=== PATIENT | female | born 1970 | race Asian ===

== ENCOUNTER → 2018-04-06 | Outpatient (CLI) | payer BC ==
--- NOTE | 2018-04-06 10:47 | US ---
EXAMINATION TYPE: US pelvic complete DATE OF EXAM: 04/06/2018 COMPARISON: NONE CLINICAL HISTORY: Abdominal Pain R10.9. LLQ LUQ pain TECHNIQUE: Transabdominal (TA). Date of LMP: 03/08/2018 EXAM MEASUREMENTS: Uterus: 6.9 x 6.4 x 7.6 cm Endometrial Stripe: 2.2 cm Right Ovary: 3.4 x 1.2 x 3.4 cm Left Ovary: 2.8 x 2.4 x 3.5 cm 1. Uterus: Anteverted wnl 2. Endometrium: thickened at 2.2 cm 3. Right Ovary: wnl 4. Left Ovary: wnl 5. Bilateral Adnexa: wnl 6. Posterior cul-de-sac: no free fluid IMPRESSION: 1. Thickened endometrial stripe. 2. Pelvic ultrasound is otherwise unremarkable.
--- NOTE | 2018-04-06 10:48 | US ---
EXAMINATION TYPE: US abdomen complete DATE OF EXAM: 04/06/2018 COMPARISON: NONE CLINICAL HISTORY: Abdominal Pain R10.9. LUQ pain EXAM MEASUREMENTS: Liver Length: 10.9 cm Gallbladder Wall: 0.3 cm CBD: 0.5 cm Spleen: 10.1 cm Right Kidney: 10.2 x 3.6 x 4.2 cm Left Kidney: 11.1 x 5.0 x 4.9 cm Pancreas: visualized portions wnl Liver: wnl Gallbladder: No stones seen Evidence for sonographic Thakkar's sign: No CBD: wnl Spleen: wnl Right Kidney: No hydronephrosis or masses seen Left Kidney: No hydronephrosis or masses seen Upper IVC: wnl Abd Aorta: wnl IMPRESSION: 1. Normal abdomen ultrasound
--- NOTE | 2018-04-06 12:14 | MM ---
Reason for exam: screening (asymptomatic). Baseline mammogram. Physical Findings: Nurse did not find any significant physical abnormalities on exam. MG 3D Screening Mammo W/Cad Bilateral CC and MLO view(s) were taken. The breast tissue is extremely dense which could obscure a lesion on mammography. Focal asymmetry right upper outer quadrant, probably benign. These results were verbally communicated with the patient and result sheet given to the patient on 04/06/18. ASSESSMENT: Probably benign, BI-RAD 3 RECOMMENDATION: Follow-up diagnostic mammogram of the right breast in 6 months.
== END | disposition home or self-care (01) ==
LOC: RADUSWWP 08:38
PROVIDERS: ATTEND Family Medicine
DX: Z12.31 Encounter for screening mammogram for malignant neoplasm of breast (principal); R93.8 Abnormal findings on diagnostic imaging of other specified body structures; R10.9 Unspecified abdominal pain
CPT/HCPCS: 76700; 76856; 77063; 77067

== ENCOUNTER → 2018-10-11 | Outpatient (CLI) | payer BC ==
--- NOTE | 2018-10-11 13:40 | MM ---
Reason for exam: follow-up at short interval from prior study. Last mammogram was performed 6 months ago. Physical Findings: Nurse Summary: 2cm nodule in the right breast at 11 o'clock (nurse elizabeth). MG 3D Diag Mammo W/Cad RT CC, MLO, LM, and XCCL view(s) were taken of the right breast. Prior study comparison: April 06, 2018, bilateral MG 3d screening mammo w/cad. The breast tissue is extremely dense which could obscure a lesion on mammography. Finding: There is a 15 mm lobulated mass in the upper outer quadrant of the right breast. These results were verbally communicated with the patient and result sheet given to the patient on 10/11/18. ASSESSMENT: Incomplete: need additional imaging evaluation, BI-RAD 0 RECOMMENDATION: Ultrasound of the right breast.
--- NOTE | 2018-10-11 13:44 | USB ---
Reason for exam: additional evaluation requested from abnormal screening. US Breast Limited RT Right limited breast ultrasound including focal area of concern, retroareolar and axilla demonstrates a 10 x 5 x 9mm lobular, cystic, mixed lesion at 9 o'clock, a 24 x 10 x 24mm oval, cystic lesion at 10 o'clock BB, a 12 x 6 x 12mm lobular, cystic lesion at 10 o'clock and a 7 x 5 x 9mm oval, lobular, solid, hypoechoic lesion at 10 o'clock. These results were verbally communicated with the patient and result sheet given to the patient on 10/11/18. ASSESSMENT: Suspicious, BI-RAD 4 RECOMMENDATION: Ultrasound core biopsy of the right breast. Called Dr. Jama with mammographic findings and has scheduled an appointment for the patient for 10/19/18 at 8:[address] Barahona. Biopsy scheduled for 10/24/18 at 12:20. PRELIMINARY REPORT CALLED AND FAXED TO DR. BARAHONA ON 10/11/18.
== END | disposition home or self-care (01) ==
LOC: RADMAMWWP 10:21
PROVIDERS: ATTEND Family Medicine
DX: R92.8 Other abnormal and inconclusive findings on diagnostic imaging of breast (principal)
CPT/HCPCS: 77061; 77065

== ENCOUNTER → 2018-10-19 | Outpatient (CLI) | payer BC ==
[2018-10-19 08:00] VITALS: BP 118/75; PULSE 69; RESP 16; TEMP 98; BMI 23.4
--- NOTE | 2018-10-19 08:48 | P.GSHP ---
History of Present Illness H&P Date: 10/19/18 Chief Complaint: abnormal mammogram/ultrasound of the right breast The patient is a 47-year-old white female who presents for breast evaluation. Secondary to a wellness check recommended from work a mammogram was performed. On the mammogram shouldn't was noted to have a 15 mm lobulated mass in the upper outer quadrant of the right breast. This was performed in October 11. She subsequently underwent an ultrasound which revealed a 10 x 9 mm lobular, cystic mixed lesion at 9:00, a 24 x 24 mm cystic lesion at 10:00, a 12 x 12 mm lobular cystic lesion at 10:00, and a 7 x 9 mm lobulated, solid, hypoechoic lesion at 10:00. This was felt to be suspicious BIRADS 4 and ultrasound-guided core biopsy of the right breast was recommended. The patient does not feel anything of concern in her breasts. The patient has no nipple discharge of concern. She is not complaining of any pain in her breasts. She has no history of any infection or trauma in the breast. She has never had a breast biopsy in the past. Drinks one cup of coffee/day. She drinks pop twice a week. She does eat dark chocolate every day. She does smoke but does have some second hand exposure to smoke. Family History: negative for cancer Hormonal History: menarche: 14 : 1 at 24, 1 child, breast fed: yes periods: regular, due in two weeks BCP: no hormones: no Past Surgical History: none Past Medical History: none Social History: Smoking: Negative Alcohol: Negative Drugs: Negative - Constitutional Constitutional: Denies chills, Denies fever - EENT Comment: wears glasses Eyes: Ears: Ears, nose, mouth and throat: Denies headache, Denies sore throat - Breasts Breasts: - Cardiovascular Cardiovascular: Denies chest pain, Denies shortness of breath - Respiratory Respiratory: Denies cough, Denies 7 - Gastrointestinal Gastrointestinal: Denies abdominal pain, Denies diarrhea, Denies nausea, Denies vomiting - Genitourinary (Female) Genitourinary: Denies dysuria, Denies hematuria - Menstruation Menstruation: Reports period normal - Musculoskeletal Comment: works in a factory Musculoskeletal: Denies myalgias - Integumentary Integumentary: Denies pruritus, Denies rash - Neurological Neurological: Denies numbness, Denies weakness - Psychiatric Psychiatric: Denies anxiety, Denies depression - Endocrine Endocrine: Denies fatigue, Denies weight change - Hematologic/Lymphatic Comment: none - Allergic/Immunologic Comment: none Past Medical History History of Any Multi-Drug Resistant Organisms: None Reported Smoking Status: Never smoker Medications and Allergies Home Medications Medication Instructions Recorded Confirmed Type Ibuprofen [Advil] 200 mg PO Q8HR PRN 10/19/18 10/19/18 History Allergies Allergy/AdvReac Type Severity Reaction Status Date / Time naproxen [From Aleve] Allergy Swelling Unverified 10/19/18 08:01 Surgical - Exam Vital Signs Temp Pulse Resp BP Pulse Ox 98.0 F 69 16 118/75 99 10/19/18 07:52 10/19/18 07:52 10/19/18 07:52 10/19/18 07:52 10/19/18 07:52 BMI 23.4 - General well developed, well nourished, no distress - Eyes normal ocular movement, no icteric - ENT no hearing loss, no congestion - Neck no masses, trachea midline - Respiratory normal respiratory effort, clear to auscultation - Cardiovascular Rhythm: regular Heart Sounds: - Abdomen Abdomen: soft, non tender, no guarding, no rigid, no rebound - Integumentary no rash, no abnormal pigmentation - Neurologic no disoriented, no combative - Musculoskeletal normal gait, normal posture - Psychiatric oriented to time, oriented to person, oriented to place, speech is normal, memory intact breast exam: right breast: Multi-positional exam no dominant masses or nodules of concern Right axilla: No adenopathy of concern Left breast: Multi-positional exam no dominant masses or nodules of concern, fibrocystic changes Left axilla: No adenopathy of concern Results Mammogram and ultrasound results reviewed Assessment and Plan Assessment: Impression: 1. Radiographic abnormality mammogram and ultrasound of the right breast 2. Fibrocystic breast changes 3. No family history of cancer Plan: 1. Ultrasound-guided core biopsy of the right breast 2. Follow-up after ultrasound-guided core biopsy with discussed risks and benefits of ultrasound-guided core biopsy. I've also discussed things that can exacerbate fibrocystic disease and recommended abstaining from them. These include caffeinated beverages, exposure to nicotine, and possibly her chocolate. She understands and will take this into consideration. CC: DR. Harsha Jama
== END | disposition home or self-care (01) ==
LOC: WWCWWP 07:41
PROVIDERS: ATTEND Surgery
DX: Z53.9 Procedure and treatment not carried out, unspecified reason (principal)

== ENCOUNTER → 2018-10-24 | Day surgery (SDC) | payer BC ==
[2018-10-24 11:39] VITALS: RESP 12; BMI 23.4
[2018-10-24 13:04] VITALS: BP 130/80; PULSE 78; TEMP 98.3
--- NOTE | 2018-10-24 13:58 | USB ---
EXAMINATION TYPE: US biopsy breast VAD RT, MG diagnostic mammo RT wo CAD DATE OF EXAM: 10/24/2018 CLINICAL HISTORY: R92.8 ABN MONAE. TECHNIQUE: Ultrasound guided core biopsy of right breast. COMPARISON: NONE FINDINGS: The procedure of ultrasound guided core biopsy was explained to the patient. Benefits, alternatives, and risks were discussed. An informed consent was then obtained. The patient was placed in supine positioning for imaging and for the procedure. The overlying skin was prepped and draped in usual sterile fashion. Lidocaine buffered with bicarbonate was used as anesthetic into the skin and subcutaneous tissue up to area of concern in the right breast. A fred was made with surgical scalpel. Under ultrasound guidance, a 12-gauge vacuum assisted biopsy gun device was used to obtain 4 core samples. Following this, a biopsy clip was left in lesion. Postprocedural mammogram demonstrates appropriate clip deployment. The patient tolerated the procedure well without any immediate complication. The patient was kept in the radiology department for short stay after the procedure and then discharged home in stable condition. IMPRESSION: Successful, uncomplicated ultrasound guided core biopsy of area of concern in the right breast, full pathology results to follow. Pathology Results: Benign RIGHT BREAST LESION, NEEDLE CORE BIOPSY: Fibrocystic spectrum lesion with stromal fibrosis, duct cystic changes and a variety of duct hyperplastic lesions. Recommendation Follow up ultrasound of the right breast in 6 months. SHANA
== END ==
LOC: RADUSWWP 11:10
PROVIDERS: ATTEND Surgery
DX: R92.8 Other abnormal and inconclusive findings on diagnostic imaging of breast (principal); N64.89 Other specified disorders of breast
CPT/HCPCS: 19083; 88305; 77065; A4648; J2001

== ENCOUNTER → 2018-11-03 | Outpatient (CLI) | payer BC ==
[2018-11-03 14:39] VITALS: BP 136/83; PULSE 62; RESP 16; TEMP 97.6; BMI 23.4
--- NOTE | 2018-11-03 14:59 | P.PN ---
Subjective Progress Note Date: 11/03/18 Principal diagnosis: Status post ultrasound-guided core biopsy right breast Lani is a 47-year-old female who is status post right breast [place] [id number]. Pathology was consistent with fibrocystic spectrum lesion. The ultrasound was reviewed with radiology and is felt that there is no other area of concern. The patient has no complaints related to the procedure at this time. Objective - Vital Signs Vital signs: Vital Signs Temp 97.6 F 11/03/18 14:36 Pulse 62 11/03/18 14:36 Resp 16 11/03/18 14:36 BP 136/83 11/03/18 14:36 Pulse Ox 99 11/03/18 14:36 Intake & Output 11/02/18 11/03/18 11/03/18 18:59 06:59 18:59 Weight 54.431 kg - Exam BMI 23.4 - Constitutional General appearance: Present: average body habitus - EENT Eyes: Present: EOMI ENT: Present: hearing grossly normal - Neck Neck: Present: normal ROM - Respiratory Respiratory: bilateral: CTA - Cardiovascular Rhythm: regular Heart sounds: normal: S1, S2 - Integumentary Integumentary Comment(s): Puncture site clean and dry no evidence of infection in the right breast Assessment and Plan Assessment: Impression: 1. Patient status post right breast ultrasound core biopsy pathology benign 2. Fibrocystic breast changes Plan: 1. Repeat right breast ultrasound in 6 months with physician exam at that time CC: Dr. Harsha Jama
== END ==
LOC: WWCWWP 14:35
PROVIDERS: ATTEND Surgery
DX: Z53.9 Procedure and treatment not carried out, unspecified reason (principal)

== ENCOUNTER 2019-08-18 12:15 | Emergency (ER) | payer BC ==
[2019-08-18 14:13] VITALS: RESP 20
--- NOTE | 2019-08-18 14:34 | XR ---
EXAMINATION TYPE: XR chest 2V DATE OF EXAM: 08/18/2019 COMPARISON: None HISTORY: 48-year-old female with cough TECHNIQUE: PA and lateral views FINDINGS: Heart normal size. Mild interstitial prominence without consolidation or pleural effusion. IMPRESSION: Mild interstitial prominence may reflect bronchitis or asthma. Otherwise, no acute cardiopulmonary pr ocess.
--- NOTE | 2019-08-18 14:46 | ED ---
General Adult HPI - General Chief complaint: Upper Respiratory Infection Stated complaint: flu like sym Time Seen by Provider: 08/18/19 13:44 Source: patient Mode of arrival: ambulatory Limitations: no limitations - History of Present Illness Initial comments: Patient is a 48-year-old female presenting to the emergency department with chief complaint of cough. She reports symptoms began about 2 days ago and have been persistent since. The cough is productive in nature with whitish sputum production. She also reports some sinus congestion and a sore throat. She does report brief headaches with some dizziness after coughing fits. Denies any posttussive emesis. Denies having flu vaccination. She has been exposed to people with influenza. Patient is not a smoker nor has asthma. Denies taking any other medication to alleviate the symptoms. Does report chills but never actually pain or temperature. Denies any abdominal pain chest pain or shortness of breath. - Related Data Home Medications Medication Instructions Recorded Confirmed Ibuprofen [Advil] 200 mg PO Q8HR PRN 10/19/18 11/03/18 Previous Rx's Medication Instructions Recorded Guaifenesin/Pseudoephedrne HCl 1 each PO BID PRN #20 tab.er.12h 08/18/19 [Mucinex D ER 1,200-120 mg Tab] Allergies Allergy/AdvReac Type Severity Reaction Status Date / Time naproxen [From Aleve] Allergy Swelling Verified 08/18/19 13:27 Review of Systems ROS Statement: Those systems with pertinent positive or pertinent negative responses have been documented in the HPI. ROS Other: All systems not noted in ROS Statement are negative. Past Medical History Past Medical History: No Reported History History of Any Multi-Drug Resistant Organisms: None Reported Past Surgical History: No Surgical Hx Reported Past Anesthesia/Blood Transfusion Reactions: No Reported Reaction Past Psychological History: No Psychological Hx Reported Smoking Status: Never smoker Past Alcohol Use History: None Reported Past Drug Use History: None Reported General Exam Limitations: no limitations General appearance: alert, in no apparent distress Head exam: Present: atraumatic, normocephalic, normal inspection Eye exam: Present: normal appearance, PERRL, EOMI Pupils: Present: normal accommodation ENT exam: Present: normal exam, normal oropharynx, mucous membranes moist, TM's normal bilaterally, normal external ear exam Neck exam: Present: normal inspection, full ROM. Absent: lymphadenopathy Respiratory exam: Present: normal lung sounds bilaterally. Absent: wheezes Cardiovascular Exam: Present: regular rate, normal rhythm, normal heart sounds GI/Abdominal exam: Present: soft. Absent: tenderness Back exam: Present: normal inspection, full ROM Neurological exam: Present: alert, oriented X3 Psychiatric exam: Present: normal affect, normal mood Skin exam: Present: warm, dry, intact, normal color. Absent: rash Course Vital Signs 08/18/19 08/18/19 13:25 13:27 Temperature 101.6 F H Pulse Rate 94 72 Respiratory 18 20 Rate Blood Pressure 133/90 125/83 O2 Sat by Pulse 99 97 Oximetry Medical Decision Making - Medical Decision Making Patient is a 48-year-old female presenting to emergency Department with a chief complaint of a cough. Symptoms have been ongoing for about a week. On exam there is no wheezing on auscultation. Patient does not have shortness of breath or chest pain. Chest x-ray shows bilateral respiratory illness. I suspect the patient has bronchitis. Patient will be discharged with antitussive medication for symptomatically. Patient vised alternate between Tylenol and ibuprofen for fever control. Strict return parameters were thoroughly discussed with patient is understanding and agreeable. Patient was to follow with primary care. Patient has no history of asthma or smoking. Case discussed with physician. Disposition Clinical Impression: Bronchitis Disposition: HOME SELF-CARE Condition: Stable Instructions (If sedation given, give patient instructions): Acute Bronchitis (ED) Additional Instructions: Please take prescribed medication as directed. Please follow up with primary care. Please return to emergency department if symptoms worsen. Prescriptions: Guaifenesin/Pseudoephedrne HCl [Mucinex D ER 1,200-120 mg Tab] 1 each PO BID PRN #20 tab.er.12h PRN Reason: Cough Is patient prescribed a controlled substance at d/c from ED?: No Referrals: Harsha Jama MD [Primary Care Provider] - 1-2 days Time of Disposition: 14:59
[2019-08-18] MEDS ORDERED: ACETAMINOPHEN TAB 325 MG TAB PO STA ×2 (14:59→15:23)
[2019-08-18 15:26] VITALS: BP 130/85; PULSE 87; TEMP 99.7
== END 2019-08-18 15:28 | disposition home or self-care (01) ==
LOC: EC 12:15
DX: J40 Bronchitis, not specified as acute or chronic (principal); Z88.6 Allergy status to analgesic agent
CPT/HCPCS: 71046; 87502; 99283

== ENCOUNTER → 2019-10-02 | Outpatient (CLI) | payer BC ==
--- NOTE | 2019-10-02 11:00 | MM ---
Reason for exam: additional evaluation requested from prior study. Last mammogram was performed 11 months ago. History: Benign US biopsy breast VAD RT of the right breast, October 24, 2018. Physical Findings: Nurse Summary: 2cm nodule in the right breast at 12 o'clock (nurse trudi). MG 3D Diag Mammo W/Cad ANGELO Bilateral CC and MLO view(s) were taken. LM, spot compression XCCL, and spot compression MLO view(s) were taken of the left breast. Prior study comparison: October 24, 2018, right breast MG diagnostic mammo RT wo CAD. October 11, 2018, right breast MG 3d diag mammo w/cad RT. The breast tissue is heterogeneously dense. This may lower the sensitivity of mammography. Previous mammotome biopsy in the right breast. Enlarging circumscribed mass right upper outer quadrant likely cyst corresponding to the palpable site. Nodular asymmetric density superior posterior left MLO view more defined from priors. These results were verbally communicated with the patient and result sheet given to the patient on 10/02/19. ASSESSMENT: Incomplete: need additional imaging evaluation, BI-RAD 0 RECOMMENDATION: Ultrasound of the right breast. (palpable)
--- NOTE | 2019-10-02 11:05 | USB ---
Reason for exam: additional evaluation requested from prior study. History: Benign US biopsy breast VAD RT of the right breast, October 24, 2018. US Breast Limited BILAT Right limited breast ultrasound including focal area of concern, retroareolar and axilla demonstrates a 1.6 x 0.7 x 1.5cm oval, cystic lesion at 9 o'clock, a 0.5 x 0.3 x 0.6cm oval, mixed lesion with clip seen at 10 o'clock, a 2.8 x 1.2 x 3.1cm oval, cystic lesion at 11 o'clock and a 1.8 x 1.0 x 1.6cm oval, cystic cluster at 12 o'clock. Benign. Left limited breast ultrasound including focal area of concern, retroareolar and axilla demonstrates a 0.8 x 0.6 x 0.8cm oval, cystic, benign lesion at 12 o'clock, may correspond to the mammographic finding and irregular tissue at 1 o'clock, 6 month follow up recommended. Scanned bilateral upper outer quadrants. These results were verbally communicated with the patient and result sheet given to the patient on 10/02/19. ASSESSMENT: Probably benign, BI-RAD 3 RECOMMENDATION: Follow-up diagnostic mammogram and ultrasound of the left breast in 6 months.
== END | disposition home or self-care (01) ==
LOC: RADUSWWP 08:55
PROVIDERS: ATTEND Surgery
DX: R92.8 Other abnormal and inconclusive findings on diagnostic imaging of breast (principal)
CPT/HCPCS: 77062; 77066

== ENCOUNTER → 2019-10-17 | Outpatient (CLI) | payer BC ==
[2019-10-17 13:46] VITALS: BP 143/87; PULSE 66; RESP 18; TEMP 98.3
--- NOTE | 2019-10-17 14:35 | P.PN ---
Subjective Progress Note Date: 10/17/19 Principal diagnosis: breast cystic disease Lani is a 48 year old [place] female who approximately a year ago underwent a mammogram as a wellness check recommended from her work. The patient at that time was noted to have an area of concern in the upper outer quadrant of the right breast. She subsequently underwent an ultrasound which likewise revealed an area of concern felt to be suspicious BIRADS 4 and an ultrasound core biopsy was recommended. The ultrasound core biopsy was benign. The patient at that time did not feel anything in her breast. She states she does not feel anything in her breast at this time. A repeat mammogram was done on 10/02/2019. The nurse at that time noted a 2 cm nodule in the breast at the 12 o'clock position. Bilateral mammogram revealed an enlarging circumscribed right breast upper outer quadrant mass likely cystic corresponding to palpable site. Nodular asymmetric density superior posterior left breast was also noted. The patient was recommended to undergo ultrasound. The [place] [id number]. In the right breast there was a 1.6 cm cystic lesion at 9:00, and mixed lesion with clip seen at 10:00, 2.8 cm cystic lesion at 11:00, and 1.8 cm oval cystic cluster at 12:00 all felt to be benign. In the left breast ultrasound revealed a 0.8 cm oval cystic lesion at 12:00 questionably corresponding to mammographic findings and irregular tissue at 1:00 and 6 month follow-up was recommended for the left breast. Caffiene: One cup of coffee per day Smoke: Patient is exposed to secondhand smoke she does not smoke Theophylline: Patient eats dark chocolate several times a week Family History: negative for cancer Hormonal History: menarche: 14 : 1 at 24, 1 child, breast fed: yes periods: regular, due in two weeks BCP: no hormones: no Past Surgical History: none Past Medical History: none Social History: Smoking: Negative, second hand smoke Alcohol: Negative Drugs: Negative - Constitutional Constitutional: Denies chills, Denies fever - EENT Comment: wears glasses Eyes: Ears: Ears, nose, mouth and throat: Denies headache, Denies sore throat - Breasts Breasts: as per HPI - Cardiovascular Cardiovascular: Denies chest pain, Denies shortness of breath - Respiratory Respiratory: Denies cough - Gastrointestinal Gastrointestinal: Denies abdominal pain, Denies diarrhea, Denies nausea, Denies vomiting - Genitourinary (Female) Genitourinary: Denies dysuria, Denies hematuria - Menstruation Menstruation: Reports period normal - Musculoskeletal Comment: works in a factory Musculoskeletal: Denies myalgias - Integumentary Integumentary: Denies pruritus, Denies rash - Neurological Neurological: Denies numbness, Denies weakness - Psychiatric Psychiatric: Denies anxiety, Denies depression - Endocrine Endocrine: Denies fatigue, Denies weight change - Hematologic/Lymphatic Comment: none - Allergic/Immunologic Comment: seasonal allergies/advil Objective - Vital Signs Vital signs: Vital Signs Temp 98.3 F 10/17/19 13:44 Pulse 66 10/17/19 13:44 Resp 18 10/17/19 13:44 BP 143/87 10/17/19 13:44 Pulse Ox 99 10/17/19 13:44 Intake & Output 10/16/19 10/17/19 10/17/19 18:59 06:59 18:59 Weight 53.524 kg - Exam BMI 23.8 - Constitutional General appearance: Present: average body habitus - EENT Eyes: Present: EOMI ENT: Present: hearing grossly normal - Neck Neck: Present: normal ROM - Respiratory Respiratory: bilateral: CTA - Cardiovascular Rhythm: regular Heart sounds: normal: S1, S2 - Gastrointestinal Gastrointestinal Comment(s): no guarding or rebound General gastrointestinal: Present: normal bowel sounds, soft - Integumentary Integumentary: Present: normal turgor - Musculoskeletal Musculoskeletal: Present: gait normal - Psychiatric Psychiatric: Present: A&O x's 3, appropriate affect, intact judgment & insight - Additional findings Additional findings: breast exam: BRA 32B ptosis: grade 2/3 Inspection: No nipple inversion, no skin lesions of concern Palpation: Right breast: Multi-positional exam fibrocystic changes, discrete nodule at 12:00 approximately 1.2 cm in size, this is most likely cystic in nature but is tender to palpation Right axilla: No adenopathy of concern left breast: Multiple positional exam fibrocystic changes Left axilla: No adenopathy of concern Assessment and Plan Assessment: Impression: 1. Patient status post ultrasound-guided core biopsy of right breast 2019 which was benign 2. At the 12 o'clock position of the right breast there is a palpable area of abnormality for which cyst aspiration has been recommended 3. Fibrocystic breast changes 4. Radiographic abnormality left breast for which 6 month repeat ultrasound and mammogram is recommended 5. Seasonal ALLERGIES/ALLERGY to naproxen/Advil Plan: 1. Recommend aspiration tender area of palpable lesion right breast suspect this is cystic in nature if this fails to resolve we'll consider was cytology wasn't consider excision in the operating room Patient and her understand the risks and benefits of some be scheduled in the near future CC: Dr. Harsha Jama encounter f25 minutes, > 50% of time in planning and counselling Time with Patient: Less than 30
== END ==
LOC: WWCWWP 13:33
PROVIDERS: ATTEND Surgery
DX: Z53.9 Procedure and treatment not carried out, unspecified reason (principal)

== ENCOUNTER → 2019-10-18 | Outpatient (CLI) | payer BC ==
--- NOTE | 2019-10-18 11:34 | P.PCN ---
Date of Procedure: 10/18/19 Preoperative Diagnosis: cyst right breast Postoperative Diagnosis: Same Procedure(s) Performed: Aspiration cyst right breast Surgeon: Ileana Barahona Pathology: none sent Condition: stable Disposition: same day Indications for Procedure: Palpable mass right breast at 12:00 Description of Procedure: Patient was taken to the procedure room and the area of concern was prepped using alcohol. A 22-gauge needle on a 10 mL syringe was inserted into the area of concern. 6 mL of straw-colored fluid was withdrawn with resolution of the palpable mass. Patient tolerated the procedure in stable condition. She will follow up in 3 weeks. Fluid was not sent for cytology.
[2019-10-18 11:47] VITALS: BP 120/81; PULSE 71; RESP 18; TEMP 98.1
== END ==
LOC: WWCWWP 11:08
PROVIDERS: ATTEND Surgery
DX: Z53.9 Procedure and treatment not carried out, unspecified reason (principal)

== ENCOUNTER → 2020-10-23 | Outpatient (CLI) | payer SELFPAY ==
--- NOTE | 2020-10-23 14:26 | MM ---
Reason for exam: additional evaluation requested from prior study. Last mammogram was performed 1 year and 1 month ago. History: Benign US biopsy breast VAD RT of the right breast, October 24, 2018. Physical Findings: Nurse Summary: 1cm nodule in the right breast at 12 o'clock (nurse elizabeth). MG 3D Diag Mammo W/Cad ANGELO Bilateral CC and MLO view(s) were taken. Prior study comparison: October 02, 2019, bilateral MG 3d diag mammo w/cad ANGELO. October 24, 2018, right breast MG diagnostic mammo RT wo CAD. Finding #1: There is a 3.5 mm obscured oval mass in the upper outer quadrant of the right breast. Finding #2: There are typically benign calcifications in the left breast. Previous mammotome biopsy in the right breast. These results were verbally communicated with the patient and result sheet given to the patient on 10/23/20. ASSESSMENT: Incomplete: need additional imaging evaluation, BI-RAD 0 RECOMMENDATION: Ultrasound of both breasts.
--- NOTE | 2020-10-23 14:28 | USB ---
Reason for exam: additional evaluation requested from abnormal screening. History: Benign US biopsy breast VAD RT of the right breast, October 24, 2018. US Breast Limited BILAT Technologist: Sofie Rolle Right limited breast ultrasound including focal area of concern, retroareolar and axilla demonstrates a 2.5 x 2.4 x 1.0cm oval, cystic lesion at 11 o'clock and a 2.0 x 1.9 x 1.3cm cystic cluster at 12 o'clock. Left limited breast ultrasound including focal area of concern, retroareolar and axilla demonstrates a hypoechoic lesion at 1 o'clock. Right scanned 11-1 o'clock. Left scanned 12-2 o'clock. These results were verbally communicated with the patient and result sheet given to the patient on 10/23/20. ASSESSMENT: Suspicious, BI-RAD 4 RECOMMENDATION: Ultrasound core biopsy of the left breast. Called office with mammographic findings and has scheduled an appointment for the patient for 10/31/20 at 1:[address] Barahona. Biopsy scheduled for 11/12/20 at 7:00. PRELIMINARY REPORT CALLED AND FAXED TO DR. BARAHONA ON 10/23/20.
== END ==
LOC: RADMAMWWP 12:27
PROVIDERS: ATTEND Surgery
DX: N63.11 Unspecified lump in the right breast, upper outer quadrant (principal); N60.01 Solitary cyst of right breast; R92.1 Mammographic calcification found on diagnostic imaging of breast; N64.59 Other signs and symptoms in breast
CPT/HCPCS: 77062; 77066

== ENCOUNTER → 2020-10-31 | Outpatient (CLI) | payer BC ==
--- NOTE | 2020-10-31 14:42 | P.PN ---
Subjective Progress Note Date: 10/31/20 Principal diagnosis: abnormal mammogram and ultrasound of the left breast, nodularity of the breast Lani is a 49 year old [place] female who approximately two years ago underwent a mammogram as a wellness check recommended from her work. The patient at that time was noted to have an area of concern in the upper outer quadrant of the right breast. She subsequently underwent an ultrasound which likewise revealed an area of concern felt to be suspicious BIRADS 4 and an ult rasound core biopsy was recommended. The ultrasound core biopsy was benign. The patient at that time did not feel anything in her breast. She states she does not feel anything in her breast at this time. A repeat mammogram was done on 10/02/2019. The nurse at that time noted a 2 cm nodule in the breast at the 12 o'clock position. Bilateral mammogram revealed an enlarging circumscribed right breast upper outer quadrant mass likely cystic corresponding to palpable site. Nodular asymmetric density superior posterior left breast was also noted. The patient was recommended to undergo ultrasound. The patient underwent bilateral breast ultrasound [place] [id number]. In the right breast there was a 1.6 cm cystic lesion at 9:00, and mixed lesion with clip seen at 10:00, 2.8 cm cystic lesion at 11:00, and 1.8 cm oval cystic cluster at 12:00 all felt to be benign. In the left breast ultrasound revealed a 0.8 cm oval cystic lesion at 12:00 questionably corresponding to mammographic findings and irregular tissue at 1:00 and 6 month follow-up was recommended for the left breast. [place] [id number]. This revealed a 3.5 mm obscured oval mass in the upper outer quadrant of the right breast. There were typical benign calcifications of the left breast. Ultrasound of both breasts was recommended. The ultrasound of the right breast demonstrated a 2.5 cm cystic lesion at 11:00 and a 2 cm cystic lesion at 12:00. Left breast limited ultrasound revealed a hypoechoic lesion at 1:00. The recommendation was for an ultrasound core biopsy of the left breast. She has some increased nodularity in the right breast at 12 OClock. She has fibrocystic changes in the left breast. She is not complaining of any nipple discharge or skin changes. She is not complaining of pain in her breast. Caffiene: One cup of coffee per day Smoke: Patient is exposed to secondhand smoke she does not smoke chocolate: Patient eats dark chocolate several times a week Family History: negative for cancer Hormonal History: menarche: 14 : 1 at 24, 1 child, breast fed: yes periods: regular, due in two weeks BCP: no hormones: no Past Surgical History: none Past Medical History: none Social History: Smoking: Negative, second hand smoke Alcohol: Negative Drugs: Negative - Constitutional Constitutional: Denies chills, Denies fever - EENT Comment: wears glasses Eyes: Ears: Ears, nose, mouth and throat: Denies headache, Denies sore throat - Breasts Breasts: as per HPI - Cardiovascular Cardiovascular: Denies chest pain, Denies shortness of breath - Respiratory Respiratory: Denies cough - Gastrointestinal Gastrointestinal: Denies abdominal pain, Denies diarrhea, Denies nausea, Denies vomiting - Genitourinary (Female) Genitourinary: Denies dysuria, Denies hematuria - Menstruation Menstruation: Reports period normal - Musculoskeletal Comment: works in a factory Musculoskeletal: Denies myalgias - Integumentary Integumentary: Denies pruritus, Denies rash - Neurological Neurological: Denies numbness, Denies weakness - Psychiatric Psychiatric: Denies anxiety, Denies depression - Endocrine Endocrine: Denies fatigue, Denies weight change - Hematologic/Lymphatic Comment: none - Allergic/Immunologic Comment: seasonal allergies/advil Objective - Constitutional General appearance: Present: average body habitus - EENT Eyes: Present: EOMI ENT: Present: hearing grossly normal - Neck Neck: Present: normal ROM - Respiratory Respiratory: bilateral: CTA - Cardiovascular Rhythm: regular Heart sounds: normal: S1, S2 - Gastrointestinal General gastrointestinal: Present: soft - Integumentary Integumentary: Present: normal turgor - Musculoskeletal Musculoskeletal: Present: gait normal - Psychiatric Psychiatric: Present: A&O x's 3, appropriate affect, intact judgment & insight - Additional findings Additional findings: bresat exam: BRA: 32B inspection: Bilateral grade 2 ptosis Palpation: Right breast: Fibrocystic changes, increased nodularity 12 o'clock position at periareolar region Right axilla: No adenopathy of concern Left breast: Fibrocystic changes no discrete dominant masses or nodules of concern Left axilla: No adenopathy of concern Assessment and Plan Assessment: Impression: 1. Dense fibrocystic breast changes 2. Palpable nodule 12 o'clock position right breast tender to palpation approximately 8 mm in size 3. Abnormal left breast mammogram and ultrasound Plan: 1. aspiration of probable cystic lesion 12 o'clock position in the right breast 2. Ultrasound-guided core biopsy of the left breast 3. Follow-up after ultrasound-guided core biopsy of the left breast Encounter 20 minutes time spent on physical examination, counseling, and review of records.
[2020-10-31 15:24] VITALS: BP 124/82; PULSE 62; RESP 18; TEMP 98.4
== END ==
LOC: WWCWWP 13:44
PROVIDERS: ATTEND Surgery
DX: N60.11 Diffuse cystic mastopathy of right breast (principal); N60.12 Diffuse cystic mastopathy of left breast; N63.15 Unspecified lump in the right breast, overlapping quadrants; R92.8 Other abnormal and inconclusive findings on diagnostic imaging of breast

== ENCOUNTER → 2020-11-06 | Day surgery (SDC) | payer BC ==
[2020-11-06 09:50] VITALS: RESP 16
[2020-11-06 10:51] VITALS: BP 135/85; PULSE 62; TEMP 98.2
--- NOTE | 2020-11-06 15:39 | USB ---
EXAMINATION TYPE: US biopsy breast VAD LT, MG diagnostic mammo LT wo CAD DATE OF EXAM: 11/06/2020 CLINICAL HISTORY: R92.8, Abnormal mammogram. TECHNIQUE: Ultrasound guided core biopsy of left retroareolar breast. COMPARISON: NONE FINDINGS: The procedure of ultrasound guided core biopsy was explained to the patient. Benefits, alternatives, and risks were discussed. An informed consent was then obtained. The patient was placed in supine positioning for imaging and for the procedure. The overlying skin was prepped and draped in usual sterile fashion. Lidocaine buffered with bicarbonate was used as anesthetic into the skin and subcutaneous tissue up to area of concern in the left retroareolar breast. Under ultrasound guidance, a 12-gauge vacuum assisted biopsy gun device was used to obtain 2 core samples. Following this, a biopsy clip was left in lesion. The patient tolerated the procedure well without any immediate complication. The patient was kept in the radiology department for short stay after the procedure and then discharged home in stable condition. IMPRESSION: Successful, uncomplicated ultrasound guided core biopsy of area of concern in the left retroareolar breast, full pathology results to follow. Pathology Results: Benign LEFT BREAST, ONE O'CLOCK, CORE BIOPSY: Hypocellular fibrotic lesion with focal ductal cystic change/ectasia and periductal chronic inflammation (see note). Negative for diagnostic in situ or invasive carcinoma. Recommendation Follow up mammogram of both breasts in 6 year. SHANA
== END ==
LOC: LABWHC1 09:08
PROVIDERS: ATTEND Surgery
DX: N60.12 Diffuse cystic mastopathy of left breast (principal); N60.42 Mammary duct ectasia of left breast; N61.0 Mastitis without abscess
CPT/HCPCS: 88305; 77065; 19083; A4648; J2001

== ENCOUNTER → 2020-11-28 | Outpatient (CLI) | payer BC ==
[2020-11-28 09:16] VITALS: BP 154/90; PULSE 57; RESP 16; TEMP 97.9
--- NOTE | 2020-11-28 09:28 | P.PN ---
Subjective Progress Note Date: 11/28/20 Principal diagnosis: Core biopsy results Lani is a 50-year-old female who underwent an ultrasound-guided core biopsy of the left breast and [id number]. Pathology revealed hypocellular fibrotic lesion with focal ductal cystic change/ectasia and periductal chronic inflammation. Differential diagnosis includes a fibroadenoma. No cancer or precancer noted. This was felt to be benign and concordant. The patient tolerated the procedure well however has had some discomfort at this site. Her last bilateral mammogram was on . This is were initiated further workup on the left resulting in the left breast ultrasound core biopsy. Objective - Constitutional General appearance: Present: cooperative - EENT Eyes: Present: EOMI ENT: Present: hearing grossly normal - Neck Neck: Present: normal ROM - Cardiovascular Rhythm: regular Heart sounds: normal: S1, S2 - Integumentary Integumentary Comment(s): Biopsy site clean and dry No evidence of infection No evidence of hematoma Integumentary: Present: normal turgor - Musculoskeletal Musculoskeletal: Present: gait normal - Psychiatric Psychiatric: Present: A&O x's 3, appropriate affect, intact judgment & insight Assessment and Plan Assessment: Impression: 1. Patient status post ultrasound-guided core biopsy left breast benign 2. Recent bilateral mammogram resulting in bilateral breast ultrasound on Plan: 1. Repeat bilateral mammogram and ultrasound in 6 months with physician exam at that time The patient and her understand the results of the biopsy and she will have repeat radiographic evaluation in 6 months with physician exam at that time. She has any questions or concerns she will be seen sooner.
== END ==
LOC: WWCWWP 09:02
PROVIDERS: ATTEND Surgery
DX: N60.92 Unspecified benign mammary dysplasia of left breast (principal)

== ENCOUNTER → 2021-11-12 | Outpatient (CLI) | payer BC ==
--- NOTE | 2021-11-12 14:19 | MM ---
Reason for exam: additional evaluation requested from prior study. Last mammogram was performed 1 year ago. History: Benign US biopsy breast VAD LT of the left breast, November 06, 2020. Benign US biopsy breast VAD RT of the right breast, October 24, 2018. Physical Findings: A clinical breast exam by your physician is recommended on an annual basis and results should be correlated with mammographic findings. MG 3D Diag Mammo W/Cad ANGELO Bilateral CC and MLO view(s) were taken. Prior study comparison: November 06, 2020, left breast MG diagnostic mammo LT wo CAD. October 23, 2020, bilateral MG 3d diag mammo w/cad ANGELO. The breast tissue is heterogeneously dense. This may lower the sensitivity of mammography. Previous mammotome biopsy in the right and left breast. Grouped calcifications central right breast is unchanged. Enlarging circumscribed masses right breast measuring 1.4 x 0.6cm, 3.3cm and 1.6cm. Further ultrasound evaluation recommended. ASSESSMENT: Incomplete: need additional imaging evaluation, BI-RAD 0 RECOMMENDATION: Ultrasound of both breasts.
--- NOTE | 2021-11-12 14:22 | USB ---
Reason for exam: additional evaluation requested from abnormal screening. History: Benign US biopsy breast VAD LT of the left breast, November 06, 2020. Benign US biopsy breast VAD RT of the right breast, October 24, 2018. Physical Findings: A clinical breast exam by your physician is recommended on an annual basis and results should be correlated with mammographic findings. US Breast BILAT Right complete breast ultrasound includes all four quadrants, the retroareolar region and axilla. Finding demonstrates a 1.3 x 0.9 x 1.4cm either cyst cluster or mildly complex lesion but smaller at 12 o'clock, a 1.7 x 0.7 x 1.6cm lesion at 7 o'clock, a 2.0 x 1.2 x 1.9cm lesion at 8 o'clock, a 0.6 x 0.6 x 0.7cm lesion at 9 o'clock and a 2.7 x 1.2 x 3.5cm lesion at 10 o'clock. Left complete breast ultrasound includes all four quadrants, the retroareolar region and axilla. Finding demonstrates a 1.1 x 0.5 x 1.2cm complex, cystic lesion at 4 o'clock, 6 month follow up recommended and a 0.6 x 0.4 x 0.7cm lesion at 11 o'clock, 6 month follow up recommended. ASSESSMENT: Probably benign, BI-RAD 3 RECOMMENDATION: Ultrasound of the left breast in 6 months.
== END | disposition home or self-care (01) ==
LOC: RADMAMWWP 12:31
PROVIDERS: ATTEND Surgery
DX: R92.8 Other abnormal and inconclusive findings on diagnostic imaging of breast (principal)
CPT/HCPCS: 77062; 77066